=== PATIENT | male | born 1975 | race Caucasian/White ===

== ENCOUNTER 2022-09-25 05:20 | Day surgery (SDC) | payer OTHER ==
[2022-09-23 15:53] VITALS: BMI 26.5
[2022-09-25 10:30] VITALS: PULSE 60
[2022-09-25 10:32] VITALS: BP 116/69; RESP 17; TEMP 97.4
== END 2022-09-25 10:43 | disposition home or self-care (01) ==
LOC: JASU-ENDO 05:20
PROVIDERS: ATTEND Internal Medicine Gastroenterology
PROC: 0DJD8ZZ Inspection of Lower Intestinal Tract, Via Natural or Artificial Opening Endoscopic (ICD-10-PCS; principal; 2022-09-25 09:30)
DX: Z12.11 Encounter for screening for malignant neoplasm of colon (principal)